=== PATIENT | female | born 1990 | race Caucasian/White ===

== ENCOUNTER → 2020-10-25 | Outpatient (CLI) | payer OTHER ==
[~2020-10-25] MED LIST: INDERAL 10MG10 MG PO
== END ==
LOC: LAB 09:02
DX: J02.9 Acute pharyngitis, unspecified (principal); Z20.828 Contact with and (suspected) exposure to other viral communicable diseases

== ENCOUNTER 2020-10-27 04:21 | Emergency (ER) | payer OTHER ==
[~2020-10-27] VITALS: Ht 157.5 cm; Wt 72.7 kg
[2020-10-27] MEDS ORDERED: INDERAL 10MG10 MG PO (04:31)
[2020-10-27 05:33] LABS: EOS # 0.2 (0.04-0.40); EOS % 3.6 % (1.0-5.0); HEMOGLOBIN 13.5 g/dL (12.5-16.0); LYMPH# 1.6 (1.50-4.00); MEAN CELL VOLUME 85 fl (78-100); MEAN CORPUSCULAR HEMOGLOBIN 29 pg (27-31); MEAN CORPUSCULAR HGB CONC 34 g/dL (33-37); MONO # 0.3 (0.20-0.80); NEU # 3.7 (1.40-6.50); PLATELET COUNT 254 K/mm3 (130-400); RED BLOOD COUNT 4.71 M/mm3 (4.10-5.30); RED CELL DISTRIBUTION WIDTH 12.3 % (11.5-14.5); WHITE BLOOD COUNT 5.9 K/mm3 (4.8-10.8)
[2020-10-27 10:22] VITALS: BP 124/79
== END 2020-10-27 10:28 | disposition home or self-care (01) ==
LOC: ED 04:21
PROVIDERS: Family Medicine
DX: R51.9 Headache, unspecified (principal); R53.81 Other malaise; R53.83 Other fatigue; Z88.0 Allergy status to penicillin
CPT/HCPCS: J0595; J1885; J2060; J7030

== ENCOUNTER 2021-06-29 11:59 | Emergency (ER) | payer OTHER ==
[~2021-06-29] VITALS: Ht 160 cm; Wt 55.9 kg
[2021-06-29] MEDS ORDERED: CEPHALEXIN500 M1 PO (12:18)
[2021-06-29] MEDS ORDERED: TYLENOL EXTRA500 M3 PO (12:19)
[2021-06-29 14:25] VITALS: BP 119/71
== END 2021-06-29 14:26 | disposition home or self-care (01) ==
LOC: ED 11:59
DX: T81.89XA Other complications of procedures, not elsewhere classified, initial encounter (principal); Y83.8 Other surgical procedures as the cause of abnormal reaction of the patient, or of later complication, without mention of misadventure at the time of the procedure

== ENCOUNTER → 2021-07-09 | Outpatient (CLI) | payer OTHER ==
[~2021-07-09] MED LIST changes: +CEPHALEXIN500 M1 PO; +TYLENOL EXTRA500 M3 PO
== END ==
LOC: LAB 15:58
DX: R52 Pain, unspecified (principal); Z20.822 Contact with and (suspected) exposure to COVID-19

== ENCOUNTER → 2021-09-18 | Outpatient (CLI) | payer OTHER ==
[2021-09-18 19:13] LABS: CLUE CELLS NOT OBSERVED (Not Observd)
== END ==
LOC: LAB 17:43
PROVIDERS: Nurse Practitioner
DX: R10.2 Pelvic and perineal pain (principal)
CPT/HCPCS: Q0111

== ENCOUNTER → 2021-09-23 | Outpatient (CLI) | payer OTHER | LOC: LAB 16:47 | DX: Z20.822 Contact with and (suspected) exposure to COVID-19 (principal) ==

== ENCOUNTER 2021-10-25 08:44 | Emergency (ER) | payer OTHER ==
[2021-10-25 09:48] LABS: HEMOGLOBIN 13.9 g/dL (12.5-16.0); MEAN CELL VOLUME 86 fl (78-100); MEAN CORPUSCULAR HEMOGLOBIN 29 pg (27-31); MEAN CORPUSCULAR HGB CONC 34 g/dL (33-37); MEAN PLATELET VOLUME 9.7 fl (7.4-10.4); PLATELET COUNT 160 K/mm3 (130-400); RED BLOOD COUNT 4.77 M/mm3 (4.10-5.30); RED CELL DISTRIBUTION WIDTH 11.8 % (11.5-14.5); WHITE BLOOD COUNT 2.7 K/mm3 (4.8-10.8)
[2021-10-25 09:49] LABS: ALBUMIN 4.2 g/dL (3.5-5.0); POTASSIUM 3.9 mmol/L (3.5-5.1); SODIUM 140 mmol/L (136-145)
[2021-10-25 09:50] LABS: LYMPHOCYTE 54 % (20-51); MONOCYTE 0 % (3-10); NEUTROPHILS 34 % (42-75)
[2021-10-25 09:51] LABS: GLUCOSE 90 mg/dL (65-105)
[2021-10-25 09:52] LABS: TOTAL PROTEIN 7.2 g/dL (6.4-8.3)
[2021-10-25 09:53] LABS: CARBON DIOXIDE 23 mmol/L (22-29); TOTAL BILIRUBIN 0.4 mg/dL (0.2-1.2)
[2021-10-25 09:57] LABS: AST-SGOT 24 U/L (5-34)
[2021-10-25 09:58] LABS: ALT/SGPT 40 U/L (0-55)
[2021-10-25 10:04] LABS: TROPONIN-I < 0.030 ng/mL (<0.030)
[2021-10-25] MEDS ORDERED: PREDNISONE20 MG PO (10:19)
[2021-10-25] MEDS ORDERED: PROAIR DIGIHAL90 MCG IH (10:19)
[2021-10-25] MEDS ORDERED: ZITHROMAX Z PA250 MG PO (10:19)
[2021-10-25 10:35] VITALS: BP 128/76
== END 2021-10-25 10:35 | disposition home or self-care (01) ==
LOC: ED 08:44
PROVIDERS: Physician Assistant
DX: U07.1 COVID-19 (principal); Z88.0 Allergy status to penicillin

== ENCOUNTER → 2021-11-11 | Outpatient (CLI) | payer OTHER ==
[~2021-11-11] MED LIST changes: +PREDNISONE20 MG PO; +PROAIR DIGIHAL90 MCG IH; +ZITHROMAX Z PA250 MG PO
[2021-11-11 15:52] LABS: BASO # 0.01 K/mm3 (0.02-0.10); EOS # 0.09 K/mm3 (0.04-0.40); EOS % 1.3 % (1.0-5.0); HEMATOCRIT 38.3 % (37.0-47.0); MEAN CELL VOLUME 86 fl (78-100); MEAN CORPUSCULAR HEMOGLOBIN 29 pg (27-31); MEAN CORPUSCULAR HGB CONC 34 g/dL (33-37); MEAN PLATELET VOLUME 10.1 fl (7.4-10.4); MONO # 0.35 K/mm3 (0.20-0.80); NEU # 3.83 K/mm3 (1.40-6.50); PLATELET COUNT 244 K/mm3 (130-400); RED BLOOD COUNT 4.47 M/mm3 (4.10-5.30); RED CELL DISTRIBUTION WIDTH 11.9 % (11.5-14.5); WHITE BLOOD COUNT 6.8 K/mm3 (4.8-10.8)
[2021-11-11 15:56] LABS: ALBUMIN 4.4 g/dL (3.5-5.0); POTASSIUM 3.4 mmol/L (3.5-5.1)
[2021-11-11 15:57] LABS: CALCIUM 9.3 mg/dL (8.3-10.5)
[2021-11-11 15:59] LABS: TOTAL PROTEIN 7.4 g/dL (6.4-8.3)
[2021-11-11 16:00] LABS: TOTAL BILIRUBIN 0.4 mg/dL (0.2-1.2)
== END ==
LOC: LAB 15:36
PROVIDERS: Family Medicine
DX: Z00.00 Encounter for general adult medical examination without abnormal findings (principal); E78.5 Hyperlipidemia, unspecified; E55.9 Vitamin D deficiency, unspecified; E03.9 Hypothyroidism, unspecified

== ENCOUNTER → 2021-11-21 | Outpatient (CLI) | payer OTHER ==
[2021-11-21 13:01] LABS: BASO # 0.02 K/mm3 (0.02-0.10); EOS # 0.09 K/mm3 (0.04-0.40); EOS % 1.5 % (1.0-5.0); HEMATOCRIT 40.1 % (37.0-47.0); HEMOGLOBIN 13.4 g/dL (12.5-16.0); LYMPH# 1.68 K/mm3 (1.50-4.00); MEAN CELL VOLUME 87 fl (78-100); MEAN CORPUSCULAR HEMOGLOBIN 29 pg (27-31); MEAN CORPUSCULAR HGB CONC 33 g/dL (33-37); MONO # 0.31 K/mm3 (0.20-0.80); PLATELET COUNT 222 K/mm3 (130-400); RED BLOOD COUNT 4.59 M/mm3 (4.10-5.30); RED CELL DISTRIBUTION WIDTH 12.3 % (11.5-14.5); WHITE BLOOD COUNT 5.9 K/mm3 (4.8-10.8)
[2021-11-21 13:19] LABS: ALBUMIN 4.5 g/dL (3.5-5.0); POTASSIUM 4.2 mmol/L (3.5-5.1)
[2021-11-21 13:20] LABS: CALCIUM 9.6 mg/dL (8.3-10.5)
[2021-11-21 13:21] LABS: TOTAL PROTEIN 7.4 g/dL (6.4-8.3)
[2021-11-21 13:23] LABS: TOTAL BILIRUBIN 0.5 mg/dL (0.2-1.2)
[2021-11-21 15:12] LABS: D-DIMER 0.39 mg/L FEU (0.15-0.50)
[2021-11-22 11:31] LABS: ANA SCREEN with REFLEX Negative (Negative)
== END ==
LOC: LAB 12:32
PROVIDERS: Nurse Practitioner
DX: M89.8X9 Other specified disorders of bone, unspecified site (principal); R53.83 Other fatigue; R09.89 Other specified symptoms and signs involving the circulatory and respiratory systems

== ENCOUNTER → 2021-12-03 | Outpatient (CLI) | payer OTHER ==
[2021-12-03 10:13] LABS: CLUE CELLS PRESENT (Not Observd)
== END ==
LOC: LAB 09:57
PROVIDERS: Nurse Practitioner Family
DX: R10.2 Pelvic and perineal pain (principal)
CPT/HCPCS: Q0111

== ENCOUNTER → 2021-12-10 | Outpatient (CLI) | payer OTHER ==
[2021-12-10 16:59] LABS: BASO # 0.02 K/mm3 (0.02-0.10); EOS # 0.08 K/mm3 (0.04-0.40); EOS % 1.5 % (1.0-5.0); HEMATOCRIT 38.9 % (37.0-47.0); LYMPH# 2.06 K/mm3 (1.50-4.00); MEAN CELL VOLUME 88 fl (78-100); MEAN CORPUSCULAR HEMOGLOBIN 29 pg (27-31); MEAN CORPUSCULAR HGB CONC 33 g/dL (33-37); MONO # 0.23 K/mm3 (0.20-0.80); NEU # 2.98 K/mm3 (1.40-6.50); PLATELET COUNT 233 K/mm3 (130-400); RED BLOOD COUNT 4.42 M/mm3 (4.10-5.30); RED CELL DISTRIBUTION WIDTH 12.4 % (11.5-14.5); WHITE BLOOD COUNT 5.4 K/mm3 (4.8-10.8)
[2021-12-10 17:12] LABS: ALBUMIN 4.4 g/dL (3.5-5.0); POTASSIUM 3.5 mmol/L (3.5-5.1); SODIUM 141 mmol/L (136-145)
[2021-12-10 17:13] LABS: CALCIUM 9.1 mg/dL (8.3-10.5)
[2021-12-10 17:14] LABS: GLUCOSE 85 mg/dL (65-105); TOTAL PROTEIN 7.2 g/dL (6.4-8.3)
[2021-12-10 17:15] LABS: CARBON DIOXIDE 23 mmol/L (22-29)
[2021-12-10 17:16] LABS: TOTAL BILIRUBIN 0.3 mg/dL (0.2-1.2)
[2021-12-10 17:20] LABS: AST-SGOT 18 U/L (5-34)
[2021-12-10 17:21] LABS: ALT/SGPT 21 U/L (0-55)
[2021-12-10 18:26] LABS: URINE APPEARANCE CLEAR; URINE COLOR ORANGE
[2021-12-10 18:27] LABS: URINE BILIRUBIN NEGATIVE (NEGATIVE); URINE BLOOD 250 ery/uL (NEGATIVE); URINE GLUCOSE NEGATIVE (NEGATIVE); URINE KETONE NEGATIVE (NEGATIVE); URINE LEUKOCYTE ESTERASE TRACE (NEGATIVE); URINE MUCUS PRESENT (NOT PRESENT); URINE NITRATE NEGATIVE (NEGATIVE); URINE PROTEIN(semi-quant) 1+ (NEGATIVE); URINE UROBILINOGEN NORMAL (NORMAL)
[2021-12-11 15:41] LABS: FOLLICLE STIMULATING HORMONE 3.8 mIU/mL (()); LUTENIZING HORMONE 2.4 mIU/mL (()); PROGESTERONE 0.2 ng/mL (())
== END ==
LOC: LAB 16:41
PROVIDERS: Family Medicine
DX: I47.1 Supraventricular tachycardia (principal); N91.2 Amenorrhea, unspecified; R10.9 Unspecified abdominal pain

== ENCOUNTER → 2021-12-18 | Outpatient (CLI) | payer OTHER | LOC: RAD 09:00 | DX: R10.9 Unspecified abdominal pain (principal) ==

== ENCOUNTER → 2021-12-20 | Outpatient (CLI) | payer OTHER ==
[2021-12-20 16:43] LABS: URINE APPEARANCE CLEAR; URINE BILIRUBIN NEGATIVE (NEGATIVE); URINE BLOOD NEGATIVE (NEGATIVE); URINE COLOR YELLOW; URINE GLUCOSE NEGATIVE (NEGATIVE); URINE KETONE NEGATIVE (NEGATIVE); URINE LEUKOCYTE ESTERASE NEGATIVE (NEGATIVE); URINE NITRATE NEGATIVE (NEGATIVE); URINE PROTEIN(semi-quant) TRACE (NEGATIVE); URINE UROBILINOGEN NORMAL (NORMAL)
== END ==
LOC: LAB 15:56
PROVIDERS: Family Medicine
DX: N39.0 Urinary tract infection, site not specified (principal)

== ENCOUNTER → 2021-12-21 | Outpatient (CLI) | payer OTHER ==
[2021-12-21 12:45] LABS: CLUE CELLS NOT OBSERVED (Not Observd)
== END ==
LOC: LAB 11:37
PROVIDERS: Nurse Practitioner
DX: N89.8 Other specified noninflammatory disorders of vagina (principal); R35.0 Frequency of micturition
CPT/HCPCS: Q0111

== ENCOUNTER → 2021-12-27 | Outpatient (CLI) | payer OTHER | LOC: RAD 15:00 | DX: R10.9 Unspecified abdominal pain (principal) | CPT/HCPCS: Q9967 ==

== ENCOUNTER 2024-11-18 13:21 | Emergency (ER) | payer SELFPAY ==
[~2024-11-18] VITALS: Ht 157.5 cm; Wt 56.9 kg
[2024-11-18 13:45] LABS: BASO # 0.03 K/mm3 (0.02-0.10); EOS # 0.07 K/mm3 (0.04-0.40); EOS % 1.1 % (1.0-5.0); HEMATOCRIT 42.4 % (37.0-47.0); MEAN CELL VOLUME 87 fl (78-100); MEAN CORPUSCULAR HEMOGLOBIN 29 pg (27-31); MEAN CORPUSCULAR HGB CONC 33 g/dL (33-37); MEAN PLATELET VOLUME 9.8 fl (7.4-10.4); MONO # 0.28 K/mm3 (0.20-0.80); NEU # 4.03 K/mm3 (1.40-6.50); PLATELET COUNT 278 K/mm3 (130-400); RED BLOOD COUNT 4.85 M/mm3 (4.10-5.30); RED CELL DISTRIBUTION WIDTH 11.8 % (11.5-14.5); WHITE BLOOD COUNT 6.5 K/mm3 (4.8-10.8)
[2024-11-18] MEDS ORDERED: NS 1,000 ML IV SCH (14:00)
[2024-11-18 14:21] LABS: URINE WBC 0 /hpf (0-3)
[2024-11-18] MEDS ORDERED: ASHWAGANDHA62.5 MG PO (14:24)
[2024-11-18] MEDS ORDERED: VITAMIN C500 M6 PO (14:24)
[2024-11-18 14:33] LABS: ALBUMIN 4.4 g/dL (3.5-5.0)
[2024-11-18 14:36] LABS: TOTAL PROTEIN 7.7 g/dL (6.4-8.3)
[2024-11-18 14:37] LABS: TOTAL BILIRUBIN 0.3 mg/dL (0.2-1.2)
[2024-11-18] MEDS ORDERED: PROPRANOLOL HCL20 M2 PO (14:41)
[2024-11-18 14:54] LABS: URINE APPEARANCE CLEAR (CLEAR); URINE COLOR LIGHT YELLOW (YELLOW)
[2024-11-18 14:55] LABS: URINE BILIRUBIN NEGATIVE (NEGATIVE); URINE BLOOD NEGATIVE (NEGATIVE); URINE GLUCOSE NEGATIVE (NEGATIVE); URINE KETONE NEGATIVE (NEGATIVE); URINE LEUKOCYTE ESTERASE NEGATIVE (NEGATIVE); URINE NITRATE NEGATIVE (NEGATIVE); URINE PROTEIN(semi-quant) NEGATIVE (NEGATIVE)
[2024-11-18 15:19] VITALS: BP 115/80
== END 2024-11-18 15:19 | disposition home or self-care (01) ==
LOC: ED 13:21
PROVIDERS: Family Medicine
DX: I47.10 Supraventricular tachycardia, unspecified (principal); Z79.899 Other long term (current) drug therapy
CPT/HCPCS: J0153; J7030